=== PATIENT | female | born 1995 | race Caucasian/White ===

== ENCOUNTER → 2020-06-29 | Outpatient (CLI) | payer MEDICAID | END | disposition home or self-care (01) | LOC: LAB 08:20 | PROVIDERS: ATTEND Surgery | DX: Z01.812 Encounter for preprocedural laboratory examination (principal); Z20.828 Contact with and (suspected) exposure to other viral communicable diseases | CPT/HCPCS: 87426 ==

== ENCOUNTER → 2020-07-06 | Outpatient (CLI) | payer MEDICAID | END | disposition home or self-care (01) | LOC: LAB 07:56 | PROVIDERS: ATTEND Surgery | DX: Z20.828 Contact with and (suspected) exposure to other viral communicable diseases (principal) | CPT/HCPCS: 87426 ==